=== PATIENT | female | born 1955 | race African-American/Black ===

== ENCOUNTER 2020-10-12 19:09 | Emergency (ER) | payer OTHER, BC ==
[~2020-10-12] VITALS: Ht 157.5 cm; Wt 101.2 kg
[~2020-10-12 19:09] MED LIST: AMLODIPINE BESYL5 MG PO; CALCIUM 500 +1 EAC5 PO; LISINOPRIL40 MG PO; METFORMIN HCL500 MG PO; NAPROSYN250 MG PO; OMEPRAZOLE20 M2 PO; TOPROL XL50 MG PO; ULTRAM 50MG TAB50 MG PO; ZOCOR 20 MG TAB20 M1 PO
[2020-10-12] MEDS ORDERED: KEFLEX500 M1 PO (20:23)
[2020-10-12 20:41] VITALS: BP 132/74
== END 2020-10-12 20:42 | disposition home or self-care (01) ==
LOC: ER 19:09
DX: S70.12XA Contusion of left thigh, initial encounter (principal); L03.116 Cellulitis of left lower limb; R05 Cough; I10 Essential (primary) hypertension; K21.9 Gastro-esophageal reflux disease without esophagitis; E11.9 Type 2 diabetes mellitus without complications; Z79.899 Other long term (current) drug therapy; X58.XXXA Exposure to other specified factors, initial encounter; Y93.89 Activity, other specified; Y92.89 Other specified places as the place of occurrence of the external cause; Y99.8 Other external cause status